=== PATIENT | male | born 1980 | race Caucasian/White ===

== ENCOUNTER 2021-06-11 09:23 | Outpatient (CLI) | payer BC, SELFPAY ==
[2021-06-11 09:25] VITALS: BP 126/80; PULSE 70; RESP 18; TEMP 36.6; O2SAT 97
[2021-06-11 09:44] VITALS: BP 122/83; PULSE 68; RESP 18; TEMP 36.2; O2SAT 98
[2021-06-11 11:07] VITALS: BP 124/88; PULSE 59; RESP 18; TEMP 36.8; O2SAT 95
== END 2021-06-11 09:24 | disposition home or self-care (01) ==
LOC: OPS 09:26
PROVIDERS: PCP Family Medicine; Visit Provider Family Medicine
DX: U07.1 COVID-19 (principal)
CPT/HCPCS: 96365